=== PATIENT | female | born 1955 | race Caucasian/White ===

== ENCOUNTER 2022-03-14 13:26 | Outpatient (CLI) | payer BC, SELFPAY ==
[2022-03-14 09:36] LABS: Cholesterol* 190 mg/dL (90-199); Triglycerides* 229 mg/dL (40-149)
[2022-03-14 09:37] LABS: HDL Cholesterol* 47 mg/dL (>=50); LDL Cholesterol Calculated 97 mg/dL (<100)
== END 2022-03-14 13:27 | disposition home or self-care (01) ==
PROVIDERS: PCP Internal Medicine; Visit Provider Internal Medicine
DX: E78.5 Hyperlipidemia, unspecified (principal)
CPT/HCPCS: 80061

== ENCOUNTER 2023-04-02 07:55 | Outpatient (CLI) | payer BC, SELFPAY | END 2023-04-02 07:56 | disposition home or self-care (01) | LOC: NFLDREF 04-03 12:11 | PROVIDERS: PCP Internal Medicine; Referring Provider Internal Medicine; Visit Provider Internal Medicine | DX: Z00.00 Encounter for general adult medical examination without abnormal findings (principal); M85.80 Other specified disorders of bone density and structure, unspecified site; E78.5 Hyperlipidemia, unspecified; E78.1 Pure hyperglyceridemia | CPT/HCPCS: 80061; 82306 ==

== ENCOUNTER 2023-05-02 14:09 | Outpatient (CLI) | payer BC, SELFPAY ==
--- NOTE | 2023-05-02 14:30 | CRLHL7_ITS ---
For Patients: As a result of the Century Cures Act, medical imaging exams and procedure reports are released immediately into your electronic medical record. You may view this report before your referring provider. If you have questions, please contact your health care provider. DXA BONE MINERAL DENSITY STUDY Reason for exam: Other specified disorders of bone density. Current height (in): 64. Weight (lb): 150. Menopause age: 52. Ethnicity: White. 1. Have you had a previous hip or vertebral fracture? No. 2. Have you had any fractures during your adult life which did not result from significant trauma (e.g., auto accident)? No. 3. Did either of your parents have a hip fracture? No. 4. Do you smoke? No. 5. Have you ever taken Glucocorticoids? No. 6. Do you have rheumatoid arthritis? No. 7. Do you have secondary osteoporosis? No. 8. Do you drink 3 or more alcoholic drinks per day? No. 9. Are you being treated for osteoporosis? No. 10. Have you ever taken any of the following medications: Actonel, Evista, Fosamax, Miacalcin, Reclast, Boniva, Forteo, HRT (i.e., estrogen/hormone therapy), Protelos, Prolia, Vitamin D, Calcium, other ??? please specify. ANSWER: Yes, Evista, vitamin D, and calcium. 11. Do you have any of the following medical conditions: Anorexia or bulimia, asthma or emphysema, end stage renal disease, hyperparathyroidism, any seizure disorders, cancer, inflammatory bowel diseases, hysterectomy, other ??? please specify. ANSWER: No. 12. What was your maximum height (inches)? 65. 13. Do you perform weight bearing exercise regularly? Yes. 14. Do you regularly consume dairy products? Yes. 15. Do you drink caffeinated beverages? No. If female: 16. At what age did your period start? 15. 17. Are you premenopausal? No. 18. How many full-term pregnancies have you had? 0. 19. Have you ever missed your period for more than 6 months in a row (not including or menopause)? No. TECHNIQUE: Bone mineral density study was performed using the [employer]. FINDINGS: The results of the study expressed as bone mineral density (BMD) are as follows: Lumbar spine L1 to L4: BMD: 0.855 g/cm2. T-score: -1.7. Z-score: 0.1 Neck Left: BMD: 0.605 g/cm2. T-score: -2.2. Z-score: -0.7 Right: BMD: 0.609 g/cm2. T-score: -2.2. Z-score: -0.6 Total Left: BMD: 0.762 g/cm2. T-score: -1.5. Z-score: -0.2 Right: BMD: 0.769 g/cm2. T-score: -1.4. Z-score: -0.2 IMPRESSION: Osteopenia. *Comparison exams done prior to 12/2019 were performed on different unit, [employer]. COMPARISON: Compared with scan of 08/24/2020, the bone mineral density has decreased by 4.0 percent at the spine and decreased by 0.3 percent at the hip. Compared with scan of 12/10/2016, the bone mineral density has decreased by 2.0 percent at the spine and decreased by 2.9 percent at the hip. FRAX 10-year Fracture Risk Major Osteoporotic Fracture: 12% Hip Fracture: 1.9% Reported Risk Factors: [place] () Neck BMD=0.605, BMI= 25.7 Ki Haq M.D. Diagnostic Radiologist [email or web address] LISA/melinda lawrence/Dictated by: Ki Haq MD @ 05/02/2023 2:56:00 PM (Electronically Signed)
== END 2023-05-02 14:10 | disposition home or self-care (01) ==
LOC: RAD 14:11
PROVIDERS: PCP Internal Medicine; Visit Provider Internal Medicine
DX: M85.851 Other specified disorders of bone density and structure, right thigh (principal); M85.852 Other specified disorders of bone density and structure, left thigh
CPT/HCPCS: 77080

== ENCOUNTER 2023-08-27 08:37 | Emergency (ER) | payer BC, SELFPAY ==
[2023-08-27] VITALS (21 sets, daily range): BP systolic 132–155; BP diastolic 87–96; PULSE 68–94; RESP 18; TEMP 36.9; O2SAT 93–97; BMI 25.7
--- NOTE | 2023-08-27 09:07 | XR_ITS ---
Final Report Patient: ANGEL MARTINEZ Facility:?[facility] Patient ID:?[id number] Site Patient ID:?[id number]. Site :?[id number] Study:?XRay Chest 2V-08/27/2023 9:42:54 AM Ordering Physician:?DR. HANSON Final Report: INDICATION: BACK INJURY/PAIN TECHNIQUE: Chest 1 views. COMPARISON: None. FINDINGS: Cardiovascular and mediastinum: Heart size and vasculature are normal in caliber and appearance. Lungs and pleural spaces: Lungs are clear. No sign of infiltrate. No sign of pleural effusion. No pneumothorax. Bones and soft tissues: No significant findings. IMPRESSION: No evidence of acute cardiopulmonary process. Dictated by Oliverio Peralta MD @ 08/27/2023 9:57:16 AM (Electronic Signature)
--- NOTE | 2023-08-27 09:09 | ED_ITS ---
HPI - General Adult General Date Seen: 08/27/23 Chief complaint: Back Injury/Pain Stated complaint: left side neck and back pain Time Seen by Provider: 08/27/23 08:57 Source: patient Mode of arrival: ambulatory Limitations: no limitations History of Present Illness HPI narrative: Patient is a 67-year-old female with a history of hyperlipidemia presenting to the emergency department for left shoulder head back pain. She woke up this morning feeling left neck and left shoulder pain. States most of pain is in her left anterior shoulder. She thinks she slept wrong. 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 With some ibuprofen for the pain. She was told to come into the emergency department to be evaluated for cardiac issues due to the neck and shoulder pain. She states the pain does not radiate down into her chest. Denies ever having symptoms like this before. She states she feels like it is mostly musculoskeletal want to rule out anything more concerning. The only family history of heart disease as a father who had a heart attack and bypass at the age of 70. She does have family history of breast cancer and is on a cancer preventatives medicine from [facility]. Denies shortness of breath, fevers, chills, abdominal pain, diarrhea, constipation, weakness, numbness. Related Data Home Medications Medication Instructions Recorded Confirmed calcium carbonate 600 mg-vitamin 1 cap PO BID 03/20/22 08/27/23 D3 10 mcg (400 unit) capsule lorazepam 1 mg tablet 1 mg PO .Once as needed PRN 03/20/22 08/27/23 exemestane 25 mg tablet 25 mg PO QDAY 04/04/23 08/27/23 Previous Rx's Medication Instructions Recorded simvastatin 10 mg tablet 10 mg PO .HS #90 tabs 04/04/23 venlafaxine 75 mg capsule,extended 75 mg PO DAILY #90 caps 04/04/23 release 24 hr zolpidem 5 mg tablet 5 mg PO .Bedtime as needed PRN 04/04/23 insomnia #30 tabs estradiol 10 mcg vaginal tablet 10 mcg vaginal 2XW #24 tabs 04/08/23 (Vagifem) cyclobenzaprine 10 mg tablet 10 mg PO TID PRN muscle spasm #15 08/27/23 tabs Allergies Allergy/AdvReac Type Severity Reaction Status Date / Time No Known Allergies Allergy Unknown Verified 08/27/23 08:57 Review of Systems Status of ROS: Reports: 10 or more systems reviewed and unremarkable except as noted in History and below [facility] Medical History (Updated 08/27/23 @ 12:31 by Bob Guevara DO) History of renal calculi ?Z87.442 - Personal history of urinary calculi (ICD-10) Surgical History (Updated 03/20/22 @ 07:50 by Luanne Kang MD) History of benign breast biopsy ?Z98.890 - Other specified postprocedural states (ICD-10) Family History (Updated 02/21/22 @ 12:32 by Brianne Aguilar) Mother Malignant neoplasm of breast (female) Sister Ovarian cancer, Onset Age: 40 Social History (Updated 04/04/23 @ 14:10 by Syl Centeno ~ [facility]) What is your current living situation?: I presently have a place to live Problems where you live: declined to answer In the past 12 months, utilities in danger of being shut off: no In past 12 months, lack of transportation kept you from medical appts, meetings, work, or getting things needed for daily living: no In the past 12 mos, have been you worried that your food would run out before you had money to buy more?: never true In the past 12 mos, the food you bought just didn't last and you didn't have money to buy more?: never true Smoking Status: Never smoker Non-prescribed substance use: denies use How often does anyone, including family, friends and others, physically hurt you : never How often does anyone, including family, friends and others, insult or talk down to you: never How often does anyone, including family, friends and others, threaten you with harm: never How often does anyone, including family, friends and others, scream or curse at you: never Little interest or pleasure in doing things: not at all Feeling down, depressed, or hopeless: not at all Exam Narrative: Exam Narrative: Const: Well-nourished, Well-developed, in mild distress Eyes: PERRL, no conjunctival injection, and symmetrical lids HENT: Atraumatic external nose and ears. Moist mucous membranes. Neck: Symmetric, trachea midline, No thyromegaly. CVS: RRR, No murmurs or gallops. Peripheral pulses 2+ and equal in all extremities RESP: Unlabored respiratory effort. Clear to auscultation bilaterally. GI: Nontender/Nondistended, No rebound or guarding. MSK:Extremities w/o deformity, Normal Active ROM, tenderness noted to the left anterior shoulder and mild tenderness to left posterior shoulder and left lateral paraspinal neck Skin: Warm, Dry. No rashes or lesions. Neuro: Normal Muscle tone, No focal neurological deficits. Psych: Awake, Alert, & Oriented x3. Appropriate mood and affect. Const: Vital Signs, click to edit/add: Vital Signs - 24 hr 08/27/23 08:50 08/27/23 09:43 08/27/23 09:44 Temperature 98.5 F Pulse Rate 72 75 Pulse Rate [Right Pulse Oximeter] 94 Respiratory Rate 18 Blood Pressure 154/96 H Blood Pressure [Ri ght Upper Arm] 132/93 H Pulse Oximetry 96 94 93 Oxygen Delivery Me thod Room Air 08/27/23 09:45 08/27/23 10:00 08/27/23 10:01 Temperature Pulse Rate 74 75 72 Pulse Rate [Right Pulse Oximeter] Respiratory Rate Blood Pressure 143/94 H Blood Pressure [Ri ght Upper Arm] Pulse Oximetry 94 93 97 Oxygen Delivery Me thod 08/27/23 10:15 08/27/23 10:30 08/27/23 10:31 Temperature Pulse Rate 74 71 72 Pulse Rate [Right Pulse Oximeter] Respiratory Rate Blood Pressure 151/87 H Blood Pressure [Ri ght Upper Arm] Pulse Oximetry 94 94 94 Oxygen Delivery Me thod 08/27/23 10:45 08/27/23 11:00 08/27/23 11:01 Temperature Pulse Rate 71 73 71 Pulse Rate [Right Pulse Oximeter] Respiratory Rate Blood Pressure 155/91 H Blood Pressure [Ri ght Upper Arm] Pulse Oximetry 95 96 95 Oxygen Delivery Me thod 08/27/23 11:15 Temperature Pulse Rate 73 Pulse Rate [Right Pulse Oximeter] Respiratory Rate Blood Pressure Blood Pressure [Ri ght Upper Arm] Pulse Oximetry 96 Oxygen Delivery Me thod Course Vital Signs Vital signs: Initial Vital Signs Temperature 98.5 F 08/27/23 08:50 Temperature Source Temporal Artery Scan 08/27/23 08:50 Pulse Rate 94 08/27/23 08:50 Respiratory Rate 18 08/27/23 08:50 Blood Pressure 132/93 H 08/27/23 08:50 Blood Pressure Mean 106 H 08/27/23 08:50 Blood Pressure Position Sitting 08/27/23 08:50 Pulse Oximetry 96 08/27/23 08:50 Oxygen Delivery Method Room Air 08/27/23 08:50 Vital Signs Temperature 98.5 F 08/27/23 08:50 Pulse Rate 94 08/27/23 08:50 Respiratory Rate 18 08/27/23 08:50 Blood Pressure 132/93 H 08/27/23 08:50 Pulse Oximetry 96 08/27/23 08:50 Oxygen Delivery Method Room Air 08/27/23 08:50 Temperature 98.5 F 08/27/23 08:50 Pulse Rate 73 08/27/23 11:15 Respiratory Rate 18 08/27/23 08:50 Blood Pressure 155/91 H 08/27/23 11:01 Pulse Oximetry 96 08/27/23 11:15 Oxygen Delivery Method Room Air 08/27/23 08:50 Medications Administered Medications: Discontinued Medications Generic Name Dose Route Start Last Admin Trade Name Estebanq PRN Reason Stop Dose Admin Ketorolac Tromethamine 15 mg 08/27/23 09:07 08/27/23 09:38 Ketorolac 15 Mg/Ml Inj IVP 08/27/23 09:08 15 mg ONCE ONE Administration Medical Decision Making [facility] Narrative Medical decision making narrative: Patient is a 67-year-old female presenting for left shoulder and neck pain. There is concerned for cardiac causes of this pain in an ACS workup will be done. With his phone, EKG, CBC, BMP. Also ordered chest x-ray. Do not think she needs a shoulder x-ray at this time as there was no trauma. Will give her Toradol for pain. Pain did improve after the Toradol. Chest x-ray was reviewed and showed no signs of pneumonia or pneumothorax. EKG showed no concerning findings. Troponin was done along with a repeat troponin I within normal limits. ACS seems very unlikely at this time. Symptoms most likely are musculoskeletal in nature. She will be discharged home is agreeable with this plan. Will be given a prescription for Flexeril. Lab Data Labs: Lab Results 08/27/23 08/27/23 Range/Units 09:29 11:35 WBC 8.14 (4.50-11.00) K/uL RBC 5.28 H (4.00-5.20) m/uL Hgb 15.5 (12.0-16.0) gm/dL Hct 47.0 (33.0-51.0) % MCV 89 (80-100) fL MCH 29 (26-34) pg MCHC 33 (32-36) gm/dL RDW Coeff of Abdelrahman 12.3 (11.5-15.5) % Plt Count 239 (140-440) K/uL Neut % (Auto) 71.9 (42.0-72.0) % Lymph % (Auto) 17.4 L (20-44) % [place] % (Auto) 8.7 (0.0-11.0) % Eos % (Auto) 1.7 (0.0-7.0) % Baso % (Auto) 0.2 (0.0-3.0) % Neut # (Auto) 5.84 (1.7-7.0) K/uL Lymph # (Auto) 1.40 (0.90-2.90) K/uL [place] # (Auto) 0.70 (0.00-0.90) K/UL Eos # (Auto) 0.14 (0.00-0.50) K/uL Baso # (Auto) 0.02 (0.00-0.30) K/uL Abs Immat Gran (auto) 0.01 (0.00-0.30) K/uL Imm/Tot Granulo (auto) 0.1 % Sodium 140 (135-149) mmol/L Potassium 3.7 (3.6-5.1) mmol/L Chloride 104 (96-114) mmol/L Carbon Dioxide 29 (20-32) mmol/L Anion Gap 7 (7-15) mEq/L BUN 17 (7-30) mg/dL Creatinine 0.8 (0.5-1.5) mg/dL Estimated Creat Clear 48.43 Estimated GFR 82 ml/min Glucose 108 (60-115) mg/dL Calcium 9.9 (8.4-10.6) mg/dL Troponin I < 0.01 L < 0.01 L (0.01-0.04) ng/mL Imaging Data Chest x-ray: Radiologist's impression: No evidence of acute cardiopulmonary process. Dictated by Oliverio Peralta MD @ 08/27/2023 9:57:16 AM Discharge Plan Discharge Clinical Impression: Muscle strain Patient Disposition: Home, Self-Care Condition: Stable Instructions: Shoulder Pain (ED) Additional Instructions: Your symptoms appear to be musculoskeletal in nature. I will give her prescription for Flexeril a muscle relaxer. Take ibuprofen and Tylenol for pain also. Return to emergency department for new worsening symptoms Prescriptions: New cyclobenzaprine 10 mg tablet 10 mg PO TID PRN (Reason: muscle spasm) Qty: 15 0RF No Action venlafaxine 75 mg capsule,extended release 24hr 75 mg PO DAILY Qty: 90 3RF zolpidem 5 mg tablet 5 mg PO .Bedtime as needed PRN (Reason: insomnia) Qty: 30 0RF Rx Instructions: Take 30 minutes before desired bed time simvastatin 10 mg tablet 10 mg PO .HS Qty: 90 3RF exemestane 25 mg tablet 25 mg PO QDAY Rx Instructions: must administer after a meal calcium carbonate-vitamin D3 600 mg-10 mcg (400 unit) capsule 1 cap PO BID lorazepam 1 mg tablet 1 mg PO .Once as needed PRN Rx Instructions: Take one tablet one hour before flying. estradiol [Vagifem] 10 mcg tablet 10 mcg vaginal 2XW Qty: 24 3RF Follow Up/Referrals: Luanne Kang MD [Primary Care Provider] - Stand Alone Forms: Theravasc Info Instructions
[2023-08-27] MEDS: KETOROLAC 15 MG/ML inj IVP (09:38)
[2023-08-27 09:41] LABS: Basophils Percent Auto 0.2 % (0.0-3.0); Eosinophils Percent Auto 1.7 % (0.0-7.0); Hemoglobin* 15.5 gm/dL (12.0-16.0); Immature Granulocytes Pct Auto 0.1 %; Lymphocytes Percent Auto 17.4 % (20-44); Mean Corpuscular HGB Conc 33 gm/dL (32-36); Mean Corpuscular Hemoglobin 29 pg (26-34); Mean Corpuscular Volume 89 fL (80-100); Monocytes Percent Auto 8.7 % (0.0-11.0); Neutrophils Absolute Auto 5.84 K/uL (1.7-7.0); Neutrophils Percent Auto 71.9 % (42.0-72.0); Platelet Count* 239 K/uL (140-440); RDW Coefficient of Variation % 12.3 % (11.5-15.5); Red Blood Count 5.28 m/uL (4.00-5.20); White Blood Count* 8.14 K/uL (4.50-11.00)
[2023-08-27 09:42] LABS: Basophils Absolute Auto 0.02 K/uL (0.00-0.30); Eosinophils Absolute Auto 0.14 K/uL (0.00-0.50); Immature Granulocytes Abs Auto 0.01 K/uL (0.00-0.30)
[2023-08-27 09:45] LABS: Slide Review Reflex No
[2023-08-27 09:56] LABS: Chloride* 104 mmol/L (96-114); Potassium* 3.7 mmol/L (3.6-5.1); Sodium* 140 mmol/L (135-149)
[2023-08-27 09:59] LABS: Anion Gap 7 mEq/L (7-15); Blood Urea Nitrogen* 17 mg/dL (7-30); Calcium* 9.9 mg/dL (8.4-10.6); Carbon Dioxide* 29 mmol/L (20-32); Creatinine* 0.8 mg/dL (0.5-1.5); Est. Creatinine Clearance* 48.43; Estimated Glomerular Filt Rate 82 ml/min; Glucose* 108 mg/dL (60-115)
[2023-08-27 10:12] LABS: Troponin I* < 0.01 ng/mL (0.01-0.04)
[2023-08-27 12:10] LABS: Troponin I* < 0.01 ng/mL (0.01-0.04)
== END 2023-08-27 12:42 | disposition home or self-care (01) ==
PROVIDERS: Emergency Provider Student in an Organized Health Care Education/Training Program; PCP Internal Medicine
DX: T14.8XXA Other injury of unspecified body region, initial encounter (principal)
CPT/HCPCS: 36415; 71046; 80048; 84484; 85025; 93005; 96374; 99283; 99284; 99285; J1885

== ENCOUNTER 2024-04-10 08:30 | Outpatient (CLI) | payer BC, SELFPAY ==
--- OUTSIDE RECORDS SUMMARY | 2024-04-10 11:01 | XMS_ITS | Clinical Summary ---
Author Organization [facility] Address [place], [place] [address] Care Team Providers Care Clerk Of Scales Name Role Phone Luanne Kang MD Primary Care Provider [phone] Allergies No known active allergies Medications Medication Sig Dispensed Refills Start Date End Date Status simvastatin (ZOCOR) 10 mg tablet Take 1 tablet by mouth at bedtime. 0 12/01/2013 Active raloxifene (EVISTA) 60 mg tablet Take 1 tablet by mouth once daily. 0 12/01/2013 Active venlafaxine (EFFEXOR XR) 75 mg cp24 Extended-Release capsule Take 75 mg by mouth once daily with a meal. 0 12/01/2013 Active Calcium Carb-Cholecalcifer ol (CALCIUM+D) 400-133.3 mg-unit tab Take by mouth once daily. 0 12/01/2013 Active ondansetron (ZOFRAN) 4 mg tablet TK ONE T PO Q 6 H PRN 0 03/30/2018 Active oxyCODONE-acetamin ophen, 5-325 mg, (PERCOCET) 5-325 mg per tablet TK 1 OR 2 TS PO Q 4 H PRN P 0 03/30/2018 Active oxyCODONE-acetamin ophen, 5-325 mg, (PERCOCET) 5-325 mg per tabletIndications: Ureteral stone Take 1 tablet by mouth every 4 hours if needed for pain. Max acetaminophen dose: 4000mg in 24 hrs. 12 tablet 04/18/2018 Active Active Problems No known active problems Encounters Date Type Department Care Team Description 02/26/2024 2:45 PM CDT Ancillary Procedure [facility] [address] [facility] [address] [place] [address] 02/26/2024 Travel 02/18/2024 Orders Only [facility] [address] [place] [address] Self, Referral <No scans attached> from Last 3 Months Family History Medical History Relation Name Comments Cancer-breast Mother Cancer Sister 2x ovarian Relation Name Status Comments Mother Sister Social History Tobacco Use Types Packs/Day Years Used Date Smoking Tobacco: Never Smokeless Tobacco: Never Tobacco Cessation:Counseling Given: Yes Alcohol Use Standard Drinks/Week Comments Yes 0 (1 standard drink = 0.6 oz pur e alcohol) 1 drink per month Sex and Gender Information Value Date Recorded Sex Assigned at Not on file Gender Identity Not on file Sexual Orientation Not on file Obstetrics History Last Filed Vital Signs Vital Sign Reading Time Taken Comments Blood Pressure 126/69 04/18/2018 12:23 PM CDT Pulse 69 04/18/2018 12:23 PM CDT Temperature 36.7 ??C (98.1 ??F) 04/18/2018 1 2:11 PM CDT Respiratory Rate 16 04/18/2018 12:2 3 PM CDT Oxygen Saturation 99% 04/18/2018 12: 23 PM CDT Inhaled Oxygen Concentration - - Weight 63.5 kg (139 lb 14.4 oz) 04/18/2018 9:36 AM CDT Height 162.6 cm (5' 4) 04/18/2018 9:36 AM CDT Body Mass Index 24.01 04/18/2018 9:36 AM CDT Plan of Treatment Health Maintenance Due Date Last Done Comments Tdap 1968 Depression screening for age 12+ 1969 BMI (ht and wt on same day) for age 18+ 09/06/1975 Hepatitis C screening for ag e 18-79 09/06/1975 Tetanus booster 1977 Colonoscopy through age 75 2002 Lipids for age 45-75 2002 Mammogram for age 45-75 2002 Zoster (shingles) series for age 50+ (1 of 2) 09/06/2007 DEXA/DXA scan for age 65+ 2022 Pneumococcal series for age 65+ (1 of 1 - PCV) 2022 COVID-19 vaccine series ( season) 2024 06/05/2023, 06/09/2022, 12/29/2021, Additional history exists Influenza for age 65+ 03/08/2024 Medical Devices Implanted Type Area [employer] Cashier Device Identifier Shelf Expiration Date Model / Serial / Lot Stent Uret [id number] Percuflex Hydroplus - [id number] Implanted:Qty: 1 on 04/18/2018 by Tracy Salcedo MD at [facility] Left: [facility] 12/16/2020 [id number] / / [id number] Procedures Procedure Name Priority Date/Time Associated Diagnosis Comments CT CARDIAC CALCIUM SCORE ONLY WO SINGLE READ Routine 02/26/2024 2:50 PM CDT Self-referral from Last 3 Months Results * CT CARDIAC CALCIUM SCORE ONLY WO SINGLE READ (02/26/2024 2:50 PM CDT) Anatomical Region Laterality Modality Computed Tomogra phy Narrative 02/27/2024 6:54 PM CDT For Patients: As a result of the Century Cures Act, medical imaging exams and procedure reports are released immediately into your electronic medical record. ??You may view this report before your referring provider. ?? If you have questions, please contact your health care provider. CT CARDIAC CALCIUM SCORING, 02/26/2024 PATIENT HISTORY: Self-referral. REPORT: High-resolution, ECG-synchronized non-contrast computed tomography of the heart with attention to the coronary arteries was performed. Coronary calcification analyzed using Siemens calcium scoring software. These are the results of the evaluation. CT Calcium Scoring: This cardiac CT examination will provide you with a coronary artery calcium score. A coronary artery calcium score is a measurement of the amount of calcified plaque in the coronary arteries, the arteries that supply blood to the heart muscle. The coronary artery calcium score is calculated based on the number, size, and density of the calcified plaques in the coronary arteries. The amount of calcified coronary plaque has been shown to directly correlate with future risk for heart disease. The coronary artery calcium is a marker of how much plaque has accumulated in the andre of the coronary arteries. It is not a test for blockages. This test is intended to assess cardiovascular risk in patients without symptoms. It is not intended to be a test for individuals with chest pain or other possible symptoms suggestive of heart disease. If you are having chest pain or other potential cardiovascular symptoms, see your physician. Calcium Score: Left main = 0 Left anterior descending = 0 Left circumflex = 17 Right coronary artery = 1 Total calcium score = 18 This places the patient at the 62nd percentile for matched age and gender. Calcified Plaque Seen Assessment: ? ? Your cardiac CT examination demonstrates plaque in the coronary arteries. ? ? The amount of plaque in the coronary arteries directly correlates with the risk for heart attack and other coronary events (such as bypass or stenting). ? ? As discussed above, the coronary artery calcium score is intended for risk assessment in patients without cardiovascular symptoms. If you are having chest pain or other potential cardiovascular symptoms, see your physician. Recommendations: ? ? To lower your cardiovascular risk, we strongly recommend adherence to healthy lifestyle behaviors including: ?Following a heart healthy diet focused on modest portion sizes, a high intake of fresh fruits and vegetables, whole grains, healthy fats (olive oil, nuts and seeds, avocados), and healthy proteins (unprocessed meats, fish, legumes). ? Following an active lifestyle including 30-45 minutes of moderate intensity exercise 5-6 times per week. ?Avoidance of tobacco products. ? ? Cardiovascular preventive medication, including a daily aspirin and cholesterol-lowering statin medications have been shown to reduce the risk of a future heart attack and stroke, especially in individuals at higher risk for heart disease. ? ? We recommend that individuals with calcified plaque discuss the risks and benefits of cholesterol-lowering medications, blood pressure medications, and aspirin with their primary care physician. Cholesterol-lowering medications have been shown to reduce the risk of heart attack in individuals at elevated risk, including in patients with ? normal? cholesterol levels at baseline. ? ? A coronary artery calcium score is not a test for blockages, it is a test for underlying plaque. An elevated calcium score is not an indication for additional testing for coronary heart disease though one may be considered based on your clinical history. The results of your coronary artery calcium score should be reviewed by your primary care provider or industrial organizational psychologist. ? ? These recommendations are generalized and may not specifically apply to you as an individual. Your primary care physician is in the best position to provide advice on your care and clinical decisions should ultimately be made by you and your physician. EXTRACARDIAC STRUCTURES: ??There are no acute or suspicious extracardiac imaging abnormalities. Please note that all CT scans at this facility use dose modulation, iterative reconstruction and/or weight-based dosing when appropriate to reduce radiation dose to as low as reasonably achievable. ?? Miky Beckman M.D. Pediatric/Diagnostic Radiologist [email or web address]/sp / ?? Referral Self CT from Last 3 Months Advance Directives * Full Code (Latest Code Status on File) Date Activated Date Inactivated Comments 04/18/2018 9:26 AM 04/18/2018 3:21 PM Care Teams Clerk Of Scales Relationship Specialty Start Date End Date Luanne Kang MD [address] [place] [id number] PCP - General Internal Medicine 02/26/24
== END 2024-04-10 08:31 | disposition home or self-care (01) ==
LOC: NFLDREF 11:00
PROVIDERS: PCP Internal Medicine; Referring Provider Internal Medicine; Visit Provider Internal Medicine
DX: E78.5 Hyperlipidemia, unspecified (principal); M85.80 Other specified disorders of bone density and structure, unspecified site
CPT/HCPCS: 80061; 82306

== ENCOUNTER 2024-09-11 15:20 | Outpatient (CLI) | payer BC, SELFPAY | END 2024-09-11 15:21 | disposition home or self-care (01) | LOC: NFLDREF 15:23 | PROVIDERS: PCP Internal Medicine; Visit Provider Family Medicine | DX: R42 Dizziness and giddiness (principal) | CPT/HCPCS: 80048; 84443 ==

== ENCOUNTER 2025-06-17 07:58 | Outpatient (CLI) | payer MEDICARE, OTHER, SELFPAY | END 2025-06-17 07:59 | disposition home or self-care (01) | LOC: NFLDREF 06-22 18:30 | PROVIDERS: PCP Internal Medicine; Referring Provider Internal Medicine; Visit Provider Internal Medicine | DX: E78.5 Hyperlipidemia, unspecified (principal); M85.80 Other specified disorders of bone density and structure, unspecified site | CPT/HCPCS: 80061; 82306 ==